=== PATIENT | male | born 1990 | race Caucasian/White ===

== ENCOUNTER 2018-11-03 13:28 | Emergency (ER) | payer OTHER ==
[2018-11-03] MEDS ORDERED: TETRACAINE HCL 0.5% OPH SOLN 4 ML ONE (15:09)
[2018-11-03] MEDS ORDERED: DIPH/PERTUSS(ACELL)/TETANUS VAC/PF 0.5 ML SYR (>=10YO) IM ONE (15:13)
--- NOTE | 2018-11-03 15:13 | ER Document Report ---
ED Medical Screen (RME) - General Chief Complaint: Foreign Body in Eye Stated Complaint: EYE INJURY Time Seen by Provider: 11/03/18 15:05 - HPI Notes: 11/03/18 15:12 Patient is a 28-year-old male who presents complaining of right eye redness, tearing, and foreign body sensation after he was standing fiberglass prior to arrival. Patient states that he believes some of the fiberglass made it to his eye. No other medical history. Unknown last tetanus. He does not wear contact lenses. Denies WADE, fever, neck pain, URI, CP, SOB, Abd pain, dysuria, back pain, or rash. I have treated and performed a rapid initial assessment of this patient. A comprehensive ED assessment and evaluation of the patient, analysis of test results and completion of medical decision making process will be conducted by additional ED providers. PHYSICAL EXAMINATION: GENERAL: Well-appearing, well-nourished and in no acute distress. A&Ox4. Answers questions appropriately. Rt eye: injected, tearing. PERRLA, EOMI. No obvious foreign body by pen light. Will need further eval. Pt's eye was washed for 10-15 minutes in triage. - Related Data Allergies/Adverse Reactions: No Known Allergies Allergy (Unverified 11/03/18 13:32) Physical Exam - Vital signs Vitals: Temp Pulse Resp BP Pulse Ox 98.1 F 90 20 131/77 H 98 11/03/18 13:50 11/03/18 13:50 11/03/18 13:50 11/03/18 13:50 11/03/18 13:50 Course - Vital Signs Vital signs: Temp Pulse Resp BP Pulse Ox 98.1 F 90 20 131/77 H 98 11/03/18 13:50 11/03/18 13:50 11/03/18 13:50 11/03/18 13:50 11/03/18 13:50
--- NOTE | 2018-11-03 18:23 | ER Document Report ---
ED General - General Chief Complaint: Foreign Body in Eye Stated Complaint: EYE INJURY Time Seen by Provider: 11/03/18 15:05 Primary Care Provider: HALLE MARR DO [ACTIVE STAFF] - Follow up tomorrow Notes: Patient is a 28-year-old male that presents to the emergency department for chief complaint of right eye pain and redness. Patient states that he was sand[place] fiberglass on a boat around 11:00 this morning, when he felt like some the fiberglass got in his eye. He states that he was wearing eye protection but does not think that it was adequate. He states he washes had out in the sink, and rinse his eyes for about 20 minutes It, prior to coming to the emergency department. He still complaining of 9 out of 10 pain in his right eye, and feels like something might be in there, describes as it tearing sensation. Past Medical History: Denies chronic medical conditions Past Surgical History: Denies major surgical history Social History: Admits to occasional tobacco use, alcohol or drug use. Family History: Reviewed and noncontributory for presenting illness Allergies: Reviewed, see documented allergy list. REVIEW OF SYSTEMS: Other than noted above, the 12 point review of systems was reviewed with the patient and were negative, all pertinent findings are included in the HPI. PHYSICAL EXAMINATION: Vital signs reviewed, nursing noted reviewed. GENERAL: Well-appearing, well-nourished and in no acute distress, but does appear uncomfortable. HEAD: Atraumatic, normocephalic. EYES: sclera anicteric, EOMI, PERRLA, there is moderate conjunctival injection in the right eye, left eye appears normal. On fluorescein dye exam, there is no obvious corneal abrasion with magnification, slit-lamp exam was then performed, and there was very fine linear corneal abrasions noted in the 2 o'clock position, just medial to the pupil. No foreign body was noted on slit-lamp exam. ENT: Moist mucous membranes. NECK: Normal range of motion, supple without lymphadenopathy LUNGS: Breath sounds clear to auscultation bilaterally and equal. No wheezes rales or rhonchi. HEART: Regular rate and rhythm without murmurs EXTREMITIES: Nontender, good range of motion, no pitting or edema. NEUROLOGICAL: No focal neurological deficits. Moves all extremities spontaneously Motor and sensory grossly intact on exam. PSYCH: Normal mood, normal affect. SKIN: Warm, Dry, normal turgor, no rashes or lesions noted on exposed skin - Related Data Allergies/Adverse Reactions: No Known Allergies Allergy (Verified 11/03/18 18:28) Past Medical History - Social History Smoking Status: Current Some Day Smoker Chew tobacco use (# tins/day): No Frequency of alcohol use: None Drug Abuse: None Family History: Reviewed & Not Pertinent Patient has suicidal ideation: No Patient has homicidal ideation: No Renal/ Medical History: Denies: Hx Peritoneal Dialysis Physical Exam - Vital signs Vitals: Temp Pulse Resp BP Pulse Ox 98.1 F 90 20 131/77 H 98 11/03/18 13:50 11/03/18 13:50 11/03/18 13:50 11/03/18 13:50 11/03/18 13:50 Course - Re-evaluation Re-evalutation: Patient seen and examined vital signs reviewed. Patient was evaluated and treated as appropriate for the patient's presenting symptoms and complaint, with consideration of any critical or life threatening conditions that may be associated with their obtained history and exam as noted above. Patient was treated with tetracaine eyedrop, did get some relief with this, noted corneal abrasion by slit-lamp exam as noted above. The patient was re-evaluated and was stable Evaluation was most consistent with corneal abrasion, given prescription for Cipro eyedrops advised NSAIDs and follow-up with ophthalmology. Plan of care was discussed with the patient at this point, after careful co nsideration I feel that that patient can be discharged from the emergency department, the patient was educated treatments and reasons to return to the emergency department based on their presumed diagnosis as noted above, they were advised to followup with a primary care physician in 2-3 days. Patient was agreeable to plan of care. *Note is created using voice recognition software and may contain spelling, syntax or grammatical errors. - Vital Signs Vital signs: Temp Pulse Resp BP Pulse Ox 98.0 F 96 18 130/69 H 100 11/03/18 18:40 11/03/18 18:40 11/03/18 18:40 11/03/18 18:40 11/03/18 18:40 Discharge - Discharge Clinical Impression: Corneal abrasion Qualifiers: Encounter type: initial encounter Laterality: right Qualified Code(s): S05.01XA - Injury of conjunctiva and corneal abrasion without foreign body, right eye, initial encounter Condition: Stable Disposition: HOME, SELF-CARE Instructions: Corneal Abrasion ([facility]) Additional Instructions: Please follow-up with the eye doctor, use the eyedrops as directed for 5 days, he can also use artificial tears to keep your eye lubricated, try to get good rest and sleep as this will help with the healing process. Prescriptions: RX: Ciprofloxacin HCl [Ciloxan] 1 drp OD Q4H #5 ml Referrals: HALLE MARR DO [ACTIVE STAFF] - Follow up tomorrow
[2018-11-03 18:44] VITALS: BP 130/69
== END 2018-11-03 18:41 | disposition home or self-care (01) ==
LOC: ER 13:28
DX: S05.01XA Injury of conjunctiva and corneal abrasion without foreign body, right eye, initial encounter (principal); H57.11 Ocular pain, right eye; X58.XXXA Exposure to other specified factors, initial encounter; F17.200 Nicotine dependence, unspecified, uncomplicated
CPT/HCPCS: 99283; J3490